=== PATIENT | female | born 1975 | race African-American/Black ===

== ENCOUNTER 2019-01-04 00:11 | Emergency (ER) | payer BC ==
[2019-01-04] MEDS ORDERED: Cephalexin CAP* 500 MG PO ONE (02:18)
--- NOTE | 2019-01-04 02:20 | ED ---
Skin Complaint - HPI Summary HPI Summary: 43-year-old female presents with infection to right 2nd toe. She states that she has been soaking the area. States it comes to a head and then she cuts it and it drained some pus. She states that the area continues to swell. Denies any fevers. She is not diabetic. She states she is here for antibiotics. Denies any history of MRSA. - History of Current Complaint Chief Complaint: EDExtremityLower Time Seen by Provider: 01/04/19 02:05 Stated Complaint: TOE INFECTION PER PT Pain Intensity: 4 - Allergy/Home Medications Allergies/Adverse Reactions: Allergies Allergy/AdvReac Type Severity Reaction Status Date / Time No Known Allergies Allergy Verified 09/10/17 13:55 PMH/Surg Hx/FS Hx/Imm Hx Endocrine/Hematology History: Denies: Hx Diabetes, Hx Anemia Respiratory History: Denies: Hx Asthma GI History: Denies: Hx Jaundice Infectious Disease History: No Infectious Disease History: Denies: Traveled Outside the [place] in Last 30 Days - Family History Known Family History: Positive: Non-Contributory - Social History Alcohol Use: None Substance Use Type: Reports: None Smoking Status (MU): Never Smoked Tobacco Review of Systems Negative: Fever Negative: Chest Pain Negative: Shortness Of Breath Positive: Rash - right second toe All Other Systems Reviewed And Are Negative: Yes Physical Exam Triage Information Reviewed: Yes Vital Signs On Initial Exam: Initial Vitals Temp Pulse Resp BP Pulse Ox 97.8 F 76 18 148/99 100 01/04/19 00:13 01/04/19 00:13 01/04/19 00:13 01/04/19 00:13 01/04/19 00:13 Vital Signs Reviewed: Yes Appearance: Positive: Well-Appearing Skin: Positive: Warm, Dry, Other - area of erythema near nail of right 2nd toe with area that is draining some pus Head/Face: Positive: Normal Head/Face Inspection Eyes: Positive: Normal ENT: Positive: Pharynx normal Respiratory/Lung Sounds: Positive: Clear to Auscultation, Breath Sounds Present Cardiovascular: Positive: Normal, RRR Musculoskeletal: Positive: Normal, Other - capillary refill Neurological: Positive: Normal Psychiatric: Positive: Normal Procedures - Sedation Patient Received Moderate/Deep Sedation with Procedure: No Diagnostics - Vital Signs Vital Signs Temp Pulse Resp BP Pulse Ox 11/16/19 00:13 97.8 F 76 18 148/99 100 - Laboratory Lab Statement: Any lab studies that have been ordered have been reviewed, and results considered in the medical decision making process. Course/Dx - Course Course Of Treatment: 43-year-old female presents with infection to right 2nd toe. She states that she has been soaking the area. States it comes to a head and then she cuts it and it drained some pus. She states that the area continues to swell. Denies any fevers. She is not diabetic. She states she is here for antibiotics. Denies any history of MRSA. On exam has paronychia that has been draining on the right second toe. Has minimal erythema. Place patient on Keflex. sent for wound culture. Patient understands and agrees plan. - Differential Diagnoses - Skin Complaint Differential Diagnoses: Abscess, Cellulitis, Other - paronychia - Diagnoses Provider Diagnoses: Paronychia Discharge ED - Sign-Out/Discharge Documenting (check all that apply): Patient Departure - Discharge Plan Condition: Good Disposition: HOME Prescriptions: Cephalexin CAP* [Keflex CAP*] 500 mg PO TID #21 cap Patient Education Materials: Paronychia (ED) Referrals: Petra Ervin MD [Primary Care Provider] - Additional Instructions: Soak toe twice a day take keflex three times a day for 7 days Take ibuprofen for pain every 6 hours Return to ED if develop fever, spreading redness or any new or worsening symptoms - Billing Disposition and Condition Condition: GOOD Disposition: Home
[2019-01-04 02:32] VITALS: BP 135/78
== END 2019-01-04 02:30 | disposition home or self-care (01) ==
LOC: ED 00:11
DX: L03.031 Cellulitis of right toe (principal)
CPT/HCPCS: 87070; 87077; 87186; 87205; 99282; A9270-GY